=== PATIENT | female | born 1960 | race Asian ===

== ENCOUNTER 2016-07-06 09:18 | Inpatient (IN) | payer OTHER ==
--- NOTE | 2016-07-06 09:34 | EDPHY ---
H & P HPI/ROS: CHIEF COMPLAINT: Altered ental status, flu-like symptoms. HISTORY OF PRESENT ILLNESS: The patient is a 56-year-old female who presents via EMS. Wednesday night she developed flu-like symptoms including low-grade fever and cough and rested in bed all yesterday. Her noted that she went to bed around 3 o'clock yesterday afternoon. She seemed to be confused around 2100 and lethargic-appearing. These symptoms continued through this morning so EMS was notified. She is able to follow basic commands but is unable to answer basic questions. No chills, chest pain, palpitations, vomiting, diarrhea, urinary complaints, headache, lightheadedness. Her denies known head trauma but says she has not been drinking much water. Patient's daughter was diagnosed with influenza. Patient herself has not had significant fever. REVIEW OF SYSTEMS: Review of systems is unobtainable from this patient because of altered mentation. PAST MEDICAL HISTORY: UTI. SOCIAL HISTORY: Here with . VITAL SIGNS: Reviewed by me GENERAL: Well-developed, well-nourished, resting comfortably in no respiratory distress. HEENT: Atraumatic. Eyes: No icterus, no injection. Mouth: dry mucous membranes and dry lips. No erythema or lesions. Neck: supple with no adenopathy. JOE. Unable to test extraocular movements, patient unable to cooperate. Patient seems to have a slight leftward gaze preference. LUNGS: Minimal crackles at bases. Left greater than right. No wheezes, rhonchi or rales. CARDIAC: Regularly tachycardic. No rubs, murmurs or gallops. ABDOMEN: Soft, nontender, nondistended, bowel sounds normal. BACK: No CVA tenderness. EXTREMITIES: No trauma. No edema. Range of motion is normal throughout. NEURO: Alert and oriented x0, moving all extremities x4. Grossly nonfocal. Intermittent left gaze preference. SKIN: Warm and dry, no rash. PSYCHIATRIC: Slight agitation. Portions of this note were transcribed by a medical microbiologist. I personally performed a history, physical exam, medical decision making, and confirmed accuracy of information the transcribed note. Source: Family Exam Limitations: Clinical condition Constitutional: Initial Vital Signs Temperature (C) 36.9 C 07/06/16 09:27 Heart Rate 100 07/06/16 09:27 Respiratory Rate 16 07/06/16 09:27 Blood Pressure 109/92 H 07/06/16 09:27 O2 Sat (%) 94 07/06/16 09:27 O2 Delivery Mode Room Air Allergies/Adverse Reactions: No Known Allergies Allergy (Unverified 07/06/16 09:27) Home Medications: Medication Instructions Recorded NK [No Known Home Meds] 07/06/16 Medical Decision Making - Diagnostics Imaging: Study: CT of the head. Indication: AMS. Results: No acute process. The study was read by the radiologist, Dr. Alfaro. I viewed the images myself on the PACS system. X-ray chest was obtained. I viewed the images myself on the PACS system. The radiologist interpretation is: 1. Left lower lobe pneumonia. 2. Recommend follow-up until clear. I discussed the x-ray findings with the patient. Procedures: Procedure: Lumbar puncture. Indication: AMS, fever, influenza. After verbal informed consent from explaining the risks including infection, bleeding, and neurologic damage, a lumbar puncture was performed after the patient was prepped and draped in the usual fashion. The back was anesthetized with 1% lidocaine. Lumbar puncture was attempted 1st with the patient in the lying position. Patient had been medicated with Ativan prior to the procedure. Her altered mental status is making it difficult for her to follow directions and to hold still. Patient was then changed to a sitting position. Lumbar puncture was able to be successfully performed. Approximately 4 cc of slightly cloudy fluid was obtained. Opening pressure was not obtained. He just prior to end of the procedure, while collecting the fluid for tube 4, the patient abruptly sat upright. Lumbar puncture needle, 23 gauge , was removed. It is noted that the lumbar puncture needle was bent. The patient continues to move all extremities after the lumbar puncture. She was instructed to lay flat and a L of normal saline was begun. The procedure was performed by myself, Dr. Arias. ED Course/Re-evaluation: An IV was established and labs ordered. The patient was sent to CT for head imaging immediately after my exam. ISTAT obtained and is unremarkable. 1002: Head CT reported to me negative by Dr. Alfaro, radiology. I reassessed the patient at this time and discussed these results with her . After 200 CCs of fluid she is more alert and able to answer basic questions. Chest x- ray ordered. Blood work positive for influenza A. 1148: Consulted with Dr. Joseph, neurology. He will follow in the hospital. Lumbar puncture was performed. Patient received ceftriaxone 2 g as well as as acyclovir 800 mg IV following the LP. Severe Sepsis/Septic Shock Care Note The patient presents to the ED with influenza , pneumonia, altered mental status identified as an acute infection. The patient did have evidence of not have evidence of end-organ dysfunction and did not met criteria for severe sepsis. Patient was admitted to the hospitalist service. Dr. Frederick accepting. Dr. Frederick evaluated the patient in the emergency department. Differential Diagnosis: After the history was obtained and physical exam performed, the following differential for the patient's altered mental status was considered included but was not limited to hypoglycemia, electrolyte disturbances, intracranial hemorrhage, tumor, drug or alcohol intoxication, stroke, or TIA, encephalitis, meningitis, medication side effect. Consult/Admit Bed Type: Dr. Frederick, PCU Critical Care Time: I spent a total of 45 minutes of critical care time in obtaining history, performing a physical exam, bedside monitoring of interventions, collecting and interpreting tests and discussion with consultants but not including time spent performing procedures. - Data Points Laboratory Results: Laboratory Results 07/06/16 09:26 07/06/16 09:26 07/06/16 07/06/16 07/06/16 10:14 10:05 09:29 WBC RBC Hgb POC Hgb 15.6 gm/dL gm/dL (12.3-15.9) Hct POC Hct 46 % % (35.5-47.5) MCV MCH MCHC RDW Plt Count MPV Neut % (Auto) Lymph % (Auto) George % (Auto) Eos % (Auto) Baso % (Auto) Nucleat RBC Rel Count Absolute Neuts (auto) Absolute Lymphs (auto) Absolute Monos (auto) Absolute Eos (auto) Absolute Basos (auto) Absolute Nucleated RBC Immature Gran % Immature Gran # PT INR APTT VBG Lactic Acid 1.2 mmol/L mmol/L (0.7-2.1) POC Sodium 138 mEq/L mEq/L (134-144) Sodium POC Potassium 4.2 mEq/L mEq/L (3.3-5.0) Potassium POC Chloride 101 mEq/L mEq/L (96-108) Chloride Carbon Dioxide Anion Gap POC BUN 15 mg/dL mg/dL (7-23) BUN Creatinine POC Creatinine 0.8 mg/dL mg/dL (0.6-1.2) Estimated GFR Glucose POC Glucose 106 mg/dL H mg/dL (70-100) Calcium Total Bilirubin Troponin I Influenza A & B (PCR) POSITIVE FOR FLU A H (NEGATIVE) 07/06/16 07/06/16 07/06/16 09:26 09:26 09:26 WBC 4.09 10^3/uL 10^3/uL (3.80-9.50) RBC 4.99 10^6/uL 10^6/uL (4.18-5.33) Hgb 15.7 g/dL g/dL (12.6-16.3) POC Hgb Hct 46.3 % % (38.0-47.0) POC Hct MCV 92.8 fL fL (81.5-99.8) MCH 31.5 pg pg (27.9-34.1) MCHC 33.9 g/dL g/dL (32.4-36.7) RDW 12.0 % % (11.5-15.2) Plt Count 174 10^3/uL 10^3/uL (150-400) MPV 11.3 fL fL (8.7-11.7) Neut % (Auto) 61.1 % % (39.3-74.2) Lymph % (Auto) 24.4 % % (15.0-45.0) George % (Auto) 13.9 % H % (4.5-13.0) Eos % (Auto) 0.2 % L % (0.6-7.6) Baso % (Auto) 0.2 % L % (0.3-1.7) Nucleat RBC Rel Count 0.0 % % (0.0-0.2) Absolute Neuts (auto) 2.49 10^3/uL 10^3/uL (1.70-6.50) Absolute Lymphs (auto) 1.00 10^3/uL 10^3/uL (1.00-3.00) Absolute Monos (auto) 0.57 10^3/uL 10^3/uL (0.30-0.80) Absolute Eos (auto) 0.01 10^3/uL L 10^3/uL (0.03-0.40) Absolute Basos (auto) 0.01 10^3/uL L 10^3/uL (0.02-0.10) Absolute Nucleated RBC 0.00 10^3/uL 10^3/uL (0-0.01) Immature Gran % 0.2 % % (0.0-1.1) Immature Gran # 0.01 10^3/uL 10^3/uL (0.00-0.10) PT 12.5 SEC SEC (12.0-15.0) INR 0.94 (0.83-1.16) APTT 29.9 SEC SEC (23.0-38.0) VBG Lactic Acid POC Sodium Sodium 138 mEq/L mEq/L (134-144) POC Potassium Potassium 4.1 mEq/L mEq/L (3.5-5.2) POC Chloride Chloride 101 mEq/L mEq/L (97-110) Carbon Dioxide 24 mEq/l mEq/l (22-31) Anion Gap 13 mEq/L mEq/L (8-16) POC BUN BUN 13 mg/dL mg/dL (7-23) Creatinine 0.8 mg/dL mg/dL (0.6-1.0) POC Creatinine Estimated GFR > 60 Glucose 101 mg/dL H mg/dL (70-100) POC Glucose Calcium 9.7 mg/dL mg/dL (8.5-10.4) Total Bilirubin 0.6 mg/dL mg/dL (0.1-1.4) Troponin I < 0.012 ng/mL ng/mL (0-0.034) Influenza A & B (PCR) Medications Given: Discontinued Medications Fentanyl (Sublimaze) 50 mcg IVP EDNOW ONE Stop: 07/06/16 12:11 Last Admin: 07/06/16 12:30 Dose: 50 mcg Sodium Chloride (Ns) 1,000 mls @ 0 mls/hr IV ONCE ONE PRN Reason: Wide Open Stop: 07/06/16 09:36 Last Admin: 07/06/16 09:39 Dose: 1,000 mls Sodium Chloride (Ns) 1,000 mls @ 0 mls/hr IV ONCE ONE PRN Reason: Wide Open Stop: 07/06/16 12:46 Last Admin: 07/06/16 12:46 Dose: 1,000 mls Acyclovir 800 mg/ Dextrose 266 mls @ 250 mls/hr IV EDNOW ONE Stop: 07/06/16 13:50 Last Admin: 07/06/16 14:47 Dose: 266 mls Ceftriaxone Sodium 2 gm/ (Dextrose) 50 mls @ 100 mls/hr IV EDNOW ONE PRN Reason: Protocol Stop: 07/06/16 13:17 Last Admin: 07/06/16 13:36 Dose: 50 mls Lorazepam (Ativan Injection) 1 mg IVP EDNOW ONE Stop: 07/06/16 12:01 Last Admin: 07/06/16 12:10 Dose: 1 mg Lorazepam (Ativan Injection) 1 mg IVP ONCE ONE Stop: 07/06/16 14:14 Last Admin: 07/06/16 14:18 Dose: 1 mg Oseltamivir Phosphate (Tamiflu) 75 mg PO DAILY ADAMA Stop: 07/15/16 09:01 Last Admin: 07/06/16 17:00 Dose: Not Given Point of Care Test Results: 07/06/16 09:29 POC Sodium 138 POC Potassium 4.2 POC Chloride 101 POC BUN 15 POC Creatinine 0.8 POC Glucose 106 H Departure - Departure Disposition: [facility] Clinical Impression: Dehydration, Influenza Altered mental status Qualifiers: Altered mental status type: unspecified Qualified Code(s): R41.82 - Altered mental status, unspecified Pneumonia Qualifiers: Pneumonia type: due to unspecified organism Laterality: left Lung location: lower lobe of lung Qualified Code(s): J18.1 - Lobar pneumonia, unspecified organism Condition: Serious Report Scribed for: Carmen Arias Report Scribed by: Gee Camacho Date of Report: 07/06/16 Time of Report: 09:35
[2016-07-06] MEDS ORDERED: NS 1,000 ML IV ONE ×2 (09:35→12:45)
[2016-07-06 09:43] LABS: % IMMATURE GRANULYOCYTES 0.2 % (0.0-1.1); ABSOLUTE IMMATURE GRANULOCYTES 0.01 10^3/uL (0.00-0.10); ADD DIFF? NO; ADD MORPH? NO; ADD SCAN? NO; ATYPICAL LYMPHOCYTE FLAG 0 (0-99); FRAGMENT RBC FLAG 0 (0-99); HEMATOCRIT 46.3 % (38.0-47.0); HEMOGLOBIN 15.7 g/dL (12.6-16.3); LEFT SHIFT FLG 0 (0-99); LIPEMIA HEMOLYSIS FLAG 90 (0-99); MEAN CELL HEMOGLOBIN 31.5 pg (27.9-34.1); MEAN CELL HEMOGLOBIN CONCENTR. 33.9 g/dL (32.4-36.7); MEAN CELL VOLUME 92.8 fL (81.5-99.8); MEAN PLATELET VOLUME 11.3 fL (8.7-11.7); PLATELET CLUMPS FLAG 10 (0-99); PLATELET COUNT 174 10^3/uL (150-400); RED BLOOD CELL COUNT 4.99 10^6/uL (4.18-5.33)
[2016-07-06 09:51] LABS: ANION GAP 13 mEq/L (8-16); BILIRUBIN,TOTAL 0.6 mg/dL (0.1-1.4); CALCIUM 9.7 mg/dL (8.5-10.4); CARBON DIOXIDE 24 mEq/l (22-31); CHLORIDE 101 mEq/L (97-110); CREATININE 0.8 mg/dL (0.6-1.0); GLOMERULAR FILTRATION RATE > 60; GLUCOSE 101 mg/dL (70-100); POTASSIUM 4.1 mEq/L (3.5-5.2); SODIUM 138 mEq/L (134-144)
[2016-07-06 09:57] LABS: INR 0.94 (0.83-1.16); PROTIME(PATIENT) 12.5 SEC (12.0-15.0)
[2016-07-06 09:58] LABS: APTT 29.9 SEC (23.0-38.0)
[2016-07-06 10:02] LABS: TROPONIN I < 0.012 ng/mL (0-0.034)
--- NOTE | 2016-07-06 10:15 | CPEKG ---
Heart Rate: 97 RR Interval: 619 P-R Interval: 120 QRSD Interval: 84 QT Interval: 352 QTC Interval: 447 P [place]: 73 QRS [place]: 99 T Wave [place]: 40 EKG Severity - ABNORMAL ECG - EKG Impression: SINUS RHYTHM EKG Impression: RIGHT ATRIAL ABNORMALITY EKG Impression: RIGHT VENTRICULAR HYPERTROPHY Electronically Signed By: Carmen Arias 06-Jul-2016 17:53:16
[2016-07-06] MEDS ORDERED: LORazepam 2 MG/ML INJ IVP ONE ×2 (12:00→14:13)
[2016-07-06] MEDS ORDERED: fentaNYL 100 MCG/2 ML INJ IVP ONE (12:10)
[2016-07-06] MEDS ORDERED: ONDANSETRON DISINTEGRATING 4 MG TAB PO PRN (12:22)
[2016-07-06] MEDS ORDERED: ONDANSETRON 4 MG/2 ML VIAL IVP PRN (12:22)
[2016-07-06] MEDS ORDERED: ACYCLOVIR 800 MG in D5W 250 ML IV ONE (12:47)
[2016-07-06] MEDS ORDERED: cefTRIAXone 2 GM in D5W 50 ML IV ONE (12:48)
[2016-07-06 12:53] LABS: ALANINE AMINOTRANSFERASE 55 IU/L (9-52); ALBUMIN 4.8 g/dL (3.5-5.0); ALKALINE PHOSPHATASE 88 IU/L (38-126); ANION GAP 13 mEq/L (8-16); ASPARTATE AMINOTRANSFERASE 40 IU/L (14-46); BILIRUBIN,TOTAL 0.6 mg/dL (0.1-1.4); BILIRUBIN-CONJUGATED 0.5 mg/dL (0.0-0.5); BILIRUBIN-UNCONJUGATED 0.1 mg/dL (0.0-1.1); CALCIUM 9.7 mg/dL (8.5-10.4); CARBON DIOXIDE 23 mEq/l (22-31); CHLORIDE 101 mEq/L (97-110); CREATININE 0.8 mg/dL (0.6-1.0); GLOMERULAR FILTRATION RATE > 60; GLUCOSE 102 mg/dL (70-100); MAGNESIUM 2.1 mg/dL (1.6-2.3); POTASSIUM 4.1 mEq/L (3.5-5.2); SODIUM 137 mEq/L (134-144); TOTAL PROTEIN 8.5 g/dL (6.3-8.2)
[2016-07-06] MEDS ORDERED: OSELTAMIVIR PHOSPHATE 75 MG CAP PO SCH (13:00)
[2016-07-06 13:23] LABS: PROTEIN, CSF 87 mg/dL (12-60)
[2016-07-06 13:29] LABS: CSF APPEARANCE CLEAR (CLEAR); CSF COLOR COLORLESS (COLORLESS); CSF SUPERNATANT COLORLESS (COLORLESS); WBC, CSF 0 /mm3 (0-5)
[2016-07-06 13:39] LABS: CSF APPEARANCE CLEAR (CLEAR); CSF COLOR COLORLESS (COLORLESS); CSF SUPERNATANT COLORLESS (COLORLESS)
[2016-07-06] MEDS ORDERED: IOPAMIDOL (ISOVUE 370) 100 ML BTL IV ONE (13:57)
[2016-07-06 14:37] LABS: WBC, CSF 0 /mm3 (0-5)
--- NOTE | 2016-07-06 14:40 | GHP ---
[f rep st] HISTORY AND PHYSICAL DATE OF ADMISSION: 07/06/2016 CHIEF COMPLAINT: Confused. HISTORY OF PRESENT ILLNESS: This is a 56-year-old female, accompanied by her , who presents with significant confusion. All history is provided through her as this patient is not able to answer any questions at this point. Apparently, she felt as though she was coming down with inf luenza yesterday afternoon. Her daughter also has influenza. She was not vaccinated. Because of t his, she spent all afternoon in bed. Her saw her around 4 p.m. and she had a conversation. Before she went to bed, she did not speak to him, although he assumed at that point she was just fe eling poorly and did not feel like talking. She then went to bed and had an uneventful night. She did not take any medications yesterday or any other illegal drugs. She woke up today unable to spea k. She was very confused, not really following commands. Thus, her brought her into the spital. He notes that yesterday she had myalgias, possibly subjective fevers. She has somewhat of a chronic cough and has not really been coughing more than recent. She does not have any history of stroke or seizures. PAST MEDICAL/SURGICAL HISTORY: None. MEDICATIONS: None. ALLERGIES: None. FAMILY HISTORY: Her mother had a stroke. SOCIAL HISTORY: Her daughter had influenza. She is . She does not drink or smoke. REVIEW OF SYSTEMS: Ten-point review of systems is conducted and is negative, except per HPI. PHYSICAL EXAM: VITAL SIGNS: Blood pressure is 111/75, heart rate is 86, respiration rate 16, satur ating 90% on room air, T-max has been 37.1. GENERAL: The patient is a female, who is lying in bed, appears quite confused, following commands. HEENT: She is atraumatic, normocephalic. CARDIOVASCU LAR: Regular rate and rhythm. No murmurs, rubs, or gallops. PULMONARY: Lungs clear to auscultati on bilaterally. ABDOMEN: Soft, nontender, nondistended. SKIN: No rash. : No Johns. NEUROLOG IC: She is A and O x0. She is not speaking. She will follow basic commands. She has motor intact in her upper and lower extremities. Reflexes are symmetric in both her upper and lower extremities . Cranial nerves are difficult to examine as she does not really follow commands. She does not hav e a tremor. PSYCHIATRIC: Unobtainable. LABS: CBC is normal. INR 0.94. Lactate is 1.2. Basic metabolic panel is normal. ALT is 55. TSH is 0.224. CSF: Total protein is 87, glucose is 51. She is positive for influenza A. DATA: 1. I discussed this with Dr. Arias. Will admit to med/surg. 2. CT head is read as normal. 3. ECG, which I personally viewed and interpreted, shows sinus rhythm, no acute ischemic changes. 4. Chest x-ray, which I personally viewed and interpreted, shows possible left lower lobe pneumonia . IMPRESSION AND PLAN: This is a 56-year-old female, with no medical history, who presents with signi ficant encephalopathy and influenza A. 1. Influenza A: Will treat with Tamiflu twice daily. She had questionable left lower lobe pneumon ia, I think it is reasonable to treat her for community-acquired pneumonia at this point. She has a lready received 2 g of Rocephin. Will add azithromycin. 2. Encephalopathy: This is quite pronounced in an otherwise healthy, high functioning lady. Dr. Andres fuentes with Neurology has been consulted. Full LP results are pending, though initial protein is elevat ed with a normal glucose. Agree at this point with empiric treatment for meningitis/encephalitis. Other considerations include acute CVA, will check CT angio of head and neck if LP results somewhat under-whelming. Consider seizures, though no focus seen on CT scan. Consider that this may be due to influenza A, though her encephalopathy is quite marked. Her TSH is low, I will check free T3 and T4. I have checked a cortisol. Will follow her on telemetry, though I do not have any indication at this point that this is acute coronary syndrome. I will check another troponin tomorrow morning. /[id number]/MODL
[2016-07-06] MEDS: NS 1,000 ML IV SCH (15:32)
[2016-07-06] MEDS: AZITHROMYCIN IV 500 MG in D5W 250 ML IV SCH (15:50)
[2016-07-06 18:08] LABS: INR 1.04 (0.83-1.16); PROTIME(PATIENT) 13.5 SEC (12.0-15.0)
[2016-07-06] MEDS: OSELTAMIVIR PHOSPHATE 75 MG CAP PO SCH (19:02)
--- NOTE | 2016-07-06 20:41 | GCON ---
[f rep st] CONSULTATION INFECTIOUS DISEASE CONSULTATION REFERRING PHYSICIAN: Bob Frederick MD REASON FOR CONSULTATION: Influenza with encephalopathy. HISTORY OF PRESENT ILLNESS: Patient is a 56-year-old female who was admitted to [facility] on 07/06/2016, through the emergency room. The patient presented with significant confusion. The patient's noted in the emergency room that their daughter, who lives at home, has influenza A. The patient began to feel ill over the last couple of days. The patient went to bed last night, and had a conversation with her around 4 p.m., but later in the evening there was no conversation prior to bedtime, but the presumed that she was feeling poorly and did not feel like talking. The night was uneventful, but when she woke up this morning she was unable to speak, was quite confused and not following commands. In emergency room, she was positive by nasal swab for influenza A. She was afebrile. The patient was started on Tamiflu. She underwent a noncontrasted head CT which was normal. She underwent a neck and head CT angiogram, both of which were normal. Currently, she is resting in her hospital bed. The patient is alert. She is somnolent most of the time, but with stimulation she opens her eyes and attends. She was able to utter no and nod and shake her head to a couple of questions, but with more than quite simple questions she was unable to give a response. She attempted to verbalize when I asked her to state her full name, but she was unable to do so. She was able to squeeze my hand, but unable to move her feet with commands. However, she was noted to have spontaneous movement of her lower extremities at different points in the exam. PAST MEDICAL HISTORY: Negative. PAST SURGICAL HISTORY: Negative. ANTIBIOTICS: Oseltamivir. ALLERGIES: No known medical allergies. 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 No tobacco or alcohol use. FAMILY HISTORY: Reviewed, but noncontributory. REVIEW OF SYSTEMS: Other than that detailed above in History of Present Illness , a comprehensive 10-system review is negative by chart and interview. PHYSICAL EXAMINATION: VITAL SIGNS: Temperature maximum is 37.1, temperature current is 37.1. Heart rate is 83, respiratory rate is 14, blood pressure is 101/58. GENERAL: The patient is a well-formed, well-nourished middle-aged female, in no acute distress. She is not toxic in appearance. She is alert, but somewhat somnolent. Unable to ascertain orientation. HEENT: Normocephalic for age. Atraumatic. No scleral icterus. No oral lesion or drainage from the nares. Eyes, lids and conjunctivae within normal limits. Pupils are equal and round bilaterally. NECK: Supple. No meningismus. LUNGS: Clear to auscultation bilaterally with good effort. HEART: Regular rate and rhythm. No murmur, rub , or gallop noted. SKIN: Warm and dry to the touch. No rash or lesion. MUSCULOSKELETAL: No muscle belly tenderness is noted. No joint enlargement, effusion or arthritis is seen. ABDOMEN: Soft, nontender. No masses. NEURO: Cranial nerves 2-12 seem to be intact. Peripheral sensation seems intact in all extremities. The patient's upper cognitive abilities appear to be markedly impaired. Speech is impaired. LABORATORY DATA: Patient has a CBC dated 07/06/2016, shows a white blood cell count of 4.1, hemoglobin 15.7, hematocrit of 46.3, platelet count of 174. Differential shows mildly increased monocyte percentage, otherwise normal. Serum chemistries on 07/06/2016, shows sodium 138, potassium of 4.1, chloride of 101, bicarbonate of 24, BUN of 13, creatinine is 0.8. Thyroid stimulating hormone is low at 0.224. CSF values: Patient has cerebral spinal fluid drawn during the ER presentation. No white blood cells in either tube. Spinal fluid protein is elevated at 87. Influenza PCR positive for flu A. Herpes simplex virus type 1 and type 2 DNA are pending. MICROBIOLOGIC DATA: The patient has spinal fluid Gram stain negative for organisms. Blood cultures dated 07/06/2016 are pending. ASSESSMENT: Acute influenza A with encephalopathy. This is a rare, but known, manifestation of influenza. I am concerned about significant viral encephalitis. We will continue her on oseltamivir. We will await the results of the MRI scan with gadolinium. We will continue supportive care. PLAN: 1. Continue oseltamivir. 2. Continue supportive care. 3. Follow up MRI results. /[id number]/MODL MTDD
--- NOTE | 2016-07-06 21:50 | GCON ---
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 She may have had some very minor memory lapses in the last year according to her where she misremembers or forgets scheduling events with her daughter. However, her would not have considered this significant if the history of present illness had not been occurring. The history of present illness is such that their daughter, who is a teenager, developed flu I believe that was positive with testing and was influenza A. The patient herself began developing low- grade fever, cough, myalgias, and went to bed early last night. Her noticed that she went to bed early and had become less talkative, and he thought that was because she was not feeling well. He is confident that at 4 p.m. yesterday she was completely herself in terms of her mental status, in terms of being talkative and coherent, fluent, etc. He then felt around 9 p.m. , she seemed confused when he came to bed without any focal weakness, numbness, or other symptoms. There were no seizures witnessed. They went to bed and when he woke up this morning, she seemed even more confused and had decreased verbal output. Therefore, EMS was activated. Again, this morning, there were no focal sensory or motor symptoms. No visual loss that he could detect. No seizure activity. She was able to follow commands apparently with EMS and in the ER, but was unable to answer basic questions. Her tells me that she did start getting back some verbal function and was able to say his name, but then got Ativan for CT angiography which then made her nonverbal again. REVIEW OF SYSTEMS: Ten-point review of system was done and positive for the constitutional symptoms related to her flu in the last 2-3 days. The pertinent negatives are negative for any focal, sensory, or motor symptoms as noted above. She may have had some minor memory lapses in the last year. Otherwise, 10-point review is negative. PAST MEDICAL HISTORY: She has had UTIs. 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 She is fluent in [place]. FAMILY HISTORY: Negative for heritable neurologic diseases. PHYSICAL EXAM: VITAL SIGNS: Temperature upon arrival is 36.9 here on the floor , blood pressure 120/79, respirations 16, heart rate 86. GENERAL: The patient had her eyes open, did not appear in acute distress, nor does she seem relaxed. She seems somewhat agitated at times when interacting with her. HIGHER MENTAL FUNCTION: She was moderately to severe encephalopathic, able to follow minimal motor commands when trying to test her, but no coherent or clear spontaneous or evoked verbal output. I was able to get conjugate tracking in terms of her extraocular movements. There was no dysconjugate gaze. Pupils were reactive bilaterally. There was no gross facial asymmetry. On motor exam , she had good tone in all 4 extremities without any flaccid weakness noted. Deep tendon reflexes were normal throughout. There was spontaneous movement throughout. There was no myoclonus or subtle convulsive activity noted. No focal findings. LABS: She had positive for flu A. White blood cell count was 4 with an elevated mono percentage at 13.9. electrolytes are normal. She had a lumbar puncture in the emergency department with 0 white cells and a protein of 87. PCRs for HSV-1 and HSV-2 are pending. IMPRESSION AND PLAN: 1. Influenza A. 2. Encephalopathy. The patient has fairly dramatic cognitive changes associated with clinical and serological influenza A suggesting [employer] involvement (flu encephalitis). There are no white blood cells in her CSF. Case was discussed with my colleagues in Infectious Disease. She had CTAs of her head and neck which were unremarkable in terms of any acute neurovascular abnormality. We will obtain an MRI brain with and without contrast to see if there are any changes of encephalitis or unexpected findings, such as stroke, masses, etc. We will continue to provide maximal supportive care and antimicrobial therapy per Infectious Disease. She is on Tamiflu now. We will also corroborate in terms of further infectious disease testing for this very nice patient. Will follow up on above. Thank you for this consultation. /[id number]/MODL MTDD
[2016-07-06] MEDS: ACYCLOVIR 800 MG in D5W 250 ML IV SCH (22:00)
[2016-07-07 05:32] LABS: ADD DIFF? NO; ADD MORPH? NO; ADD SCAN? NO; ATYPICAL LYMPHOCYTE FLAG 0 (0-99); FRAGMENT RBC FLAG 0 (0-99); HEMATOCRIT 36.2 % (38.0-47.0); HEMOGLOBIN 12.4 g/dL (12.6-16.3); LEFT SHIFT FLG 0 (0-99); LIPEMIA HEMOLYSIS FLAG 90 (0-99); MEAN CELL HEMOGLOBIN 30.8 pg (27.9-34.1); MEAN CELL HEMOGLOBIN CONCENTR. 34.3 g/dL (32.4-36.7); PLATELET CLUMPS FLAG 0 (0-99); PLATELET COUNT 147 10^3/uL (150-400); RED BLOOD CELL COUNT 4.02 10^6/uL (4.18-5.33); RED CELL DISTRIBUTION WIDTH 11.8 % (11.5-15.2)
[2016-07-07] MEDS: ACYCLOVIR 800 MG in D5W 250 ML IV SCH (05:36)
[2016-07-07] MEDS: NS 1,000 ML IV SCH ×2 (05:36→18:19)
[2016-07-07 07:26] LABS: COLOR YELLOW; LEUKOCYTE ESTERASE,URINE NEGATIVE (NEGATIVE); NITRITE,URINE NEGATIVE (NEGATIVE)
[2016-07-07 07:29] LABS: MUCUS TRACE /lpf (NONE-1+)
[2016-07-07] MEDS ORDERED: VANCOMYCIN 750 MG in D5W 150 ML IV SCH (09:00)
[2016-07-07] MEDS ORDERED: cefTRIAXone 2 GM in D5W 50 ML IV SCH (09:00)
[2016-07-07] MEDS ORDERED: cefTRIAXone 1 GM in D5W 50 ML IV SCH (09:00)
[2016-07-07] MEDS: OSELTAMIVIR PHOSPHATE 75 MG CAP PO SCH ×2 (09:25→18:20)
--- NOTE | 2016-07-07 09:50 | PCMIDPN ---
Assessment/Plan: Assessment/Plan: 1. Influenza A with encephalopathy: -On droplet precautions - Currently on Tamiflu and Ceftriaxone/Azithro for possible secondary bacterial pneumonia -CXR images reviewed: small LLL pneumonia noted -dc acyclovir as I don't think her CSF or clinical presentation is consistent with HSV encephalitis. -WBc down today. Repeat in AM. -care coordinated with RN, and hospitalist team. 2. Coag Neg staph bacteremia: -likely skin contaminant, as only in one set of each bottle, and no underlying HW/FB devices etc. -hold off on vanco for now. Meds tamiflu azithro 500mg daily ceftraixone 1g daily Subjective: intermittent low grade temps. More alert and oriented today. confirmed by friend at bedside and RN. DEnies abd pain or diarrhea. Able to tell me her , where she is at etc. Denies sob. coughing up some phlegm,mostly clear. trying to take deep breaths but weak. no history of hardware or foreign body devices. Objective: Vital Signs Temp Pulse Resp BP Pulse Ox 37.7 C 92 20 103/59 L 91 L 07/07/16 08:54 07/07/16 07:14 07/07/16 07:14 07/07/16 07:14 07/07/16 07:14 Laboratory Results 07/07/16 04:47 07/06/16 Unknown 07/06/16 07/07/16 07/08/16 05:59 05:59 05:59 Intake Total 1190 Output Total 0 900 Balance 1190 -900 - Physical Exam General Appearance: alert, no apparent distress Respiratory: coarse breath sounds (alex on left side. not able to take deep breaths. ) Cardiac/Chest: regular rate, rhythm, No systolic murmur Extremities: No swelling Abdomen: normal bowel sounds, non-tender, soft, No distended Skin: No erythema ICD10 Worksheet Patient Problems: Problems Problem Status Onset Altered mental status Acute Dehydration Acute Influenza Acute Pneumonia Acute
[2016-07-07] MEDS: AZITHROMYCIN IV 500 MG in D5W 250 ML IV SCH (10:20)
--- NOTE | 2016-07-07 14:42 | HOSPPROG ---
Hospitalist Progress Note Assessment/Plan: Assessment: 56-year-old female presents with influenza A and acute encephalopathy Plan: 1. Influenza A. Acute, new problem this provider, further workup indicated. positive PCR, clinical presentation consistent with viral encephalitis, CSF with high protein level, low glucose level, no significant pleocytosis - discussed with Dr. Joseph, will continue the patient on Tamiflu and discontinue acyclovir - continue to engage the patient in physical and occupational therapy as she is expected urine significant weakness - use as needed Tylenol and ibuprofen, avoid sedating medications she is very sensitive to these - get chest CT to rule out concomitant left lower lobe bacterial pneumonia ( Personally interpreted chest x-ray) and if negative for lobar infiltrate, will discontinue ceftriaxone and azithromycin - continue to monitor CBC, patient developing evidence of leukopenia on today's draw - recommended standard screening for HIV and hepatitis C virus given age cohort , leukopenia, transaminitis, patient is deferring testing at this time until she has not pertain to talk with her 2. Acute encephalopathy. Evidenced by global brain dysfunction characterized as disorientation plus confusion plus somnolence and lethargy, all of which are an acute change from the patient's baseline, most likely secondary to the toxic effects of infection notably influenza a - engage the patient in physical and occupational therapy as she is a high risk of deconditioning in the setting of infection - cognitive abilities are improving today with treatment for infection continue to monitor 3. Coag-negative staph. Likely contaminant, hold on any antimicrobial treatment Diet. Regular Prophylaxis. High risk patient, Lovenox 40 Code. Full Disposition. Anticipated discharge is 07/08, pending clinical improvement of conditions outlined above. Subjective: Patient reports that she still feels considerably fatigue and does not feel like she can't get out of bed Objective: Vital Signs Temp Pulse Resp BP Pulse Ox 37.0 C 83 16 95/72 L 93 07/07/16 11:54 07/07/16 11:54 07/07/16 11:54 07/07/16 11:54 07/07/16 11:54 Laboratory Results 07/07/16 04:47 07/06/16 Unknown 07/06/16 07/07/16 07/08/16 05:59 05:59 05:59 Intake Total 1190 Output Total 0 1500 Balance 1190 -1500 PT 13.5 SEC (12.0-15.0) 07/06/16 17:25 INR 1.04 (0.83-1.16) 07/06/16 17:25 - Physical Exam Constitutional: not in pain, uncomfortable, No no apparent distress ( mild distress), No chronically ill appearing Eyes: PERRL, anicteric sclera, EOMI Ears, Nose, Mouth, Throat: moist mucous membranes, hearing normal, ears appear normal, no oral mucosal ulcers Cardiovascular: regular rate and rhythym, no murmur, rub, or gallop, No edema Respiratory: no respiratory distress, no rales or rhonchi, clear to auscultation Gastrointestinal: normoactive bowel sounds, soft, non-tender abdomen, no palpable masses Neurologic: sensation intact bilaterally, other ( alert awake oriented x2 to person and place not to date, negative for meningismus), No weakness ( motor strength is 5/5 bilateral upper and lower extremity), No facial droop Psychiatric: interacting appropriately, anxious, flat affect, poor memory, other ( somnolent but arousable), No agitated ICD10 Worksheet Patient Problems: Problems Problem Status Onset Dehydration Acute Influenza Acute Altered mental status Acute Pneumonia Acute
[2016-07-07 14:58] LABS: PHENCYCLIDINE URINE BCH < 6 ng/ml (NEGATIVE); PHENCYCLIDINE URINE BCH NEGATIVE (NEGATIVE); TETRAHYDROCANNABINOL URINE < 5 ng/mL (NEGATIVE); TETRAHYDROCANNABINOL URINE NEGATIVE (NEGATIVE)
[2016-07-07] MEDS: ENOXAPARIN 40 MG/0.4 ML SYR SC SCH (16:30)
--- NOTE | 2016-07-07 18:31 | NEUROPROG ---
Assessment: 1. Influenza Type A 2. Encephalopathy, resolving Patient's mental status markedly improved today - verbal, responsive, oriented 3 /3 MRI - could not be done due to agitation Assessment/ RECCs: Likely improving flu encephalitis - 1. supportive care, antimicrobial's per ID (appreciate their input) 2. OT, PT 3. Can hold off on MRI brain for now, as AMS resolving and no focal findings 4. Will continue to follow as needed. Please contact neurology if change in neurologic status Subjective: Improved overnight Objective: Vital Signs Temp Pulse Resp BP Pulse Ox 36.7 C 81 16 113/75 92 07/07/16 15:50 07/07/16 15:50 07/07/16 15:50 07/07/16 15:50 07/07/16 15:50 Laboratory Results 07/07/16 04:47 07/06/16 Unknown 07/06/16 07/07/16 07/08/16 05:59 05:59 05:59 Intake Total 1190 1342 Output Total 0 1500 Balance 1190 -158 PT 13.5 SEC (12.0-15.0) 07/06/16 17:25 INR 1.04 (0.83-1.16) 07/06/16 17:25 a/a oriented 3/3 no aphasia, dysarthria some psychomotor slowing no drift no focal weakness no ataxia no convulsive activity Allergies/Adverse Reactions: No Known Allergies Allergy (Unverified 07/06/16 09:27)
[2016-07-08] MEDS: NS 1,000 ML IV SCH (04:06)
[2016-07-08 05:32] LABS: ADD DIFF? NO; ADD MORPH? NO; ADD SCAN? NO; ATYPICAL LYMPHOCYTE FLAG 80 (0-99); FRAGMENT RBC FLAG 0 (0-99); HEMATOCRIT 36.8 % (38.0-47.0); HEMOGLOBIN 12.6 g/dL (12.6-16.3); LEFT SHIFT FLG 0 (0-99); LIPEMIA HEMOLYSIS FLAG 90 (0-99); MEAN CELL HEMOGLOBIN 31.5 pg (27.9-34.1); MEAN CELL HEMOGLOBIN CONCENTR. 34.2 g/dL (32.4-36.7); PLATELET CLUMPS FLAG 0 (0-99); PLATELET COUNT 154 10^3/uL (150-400); RED CELL DISTRIBUTION WIDTH 11.6 % (11.5-15.2)
[2016-07-08 05:40] LABS: ALANINE AMINOTRANSFERASE 44 IU/L (9-52); ALBUMIN 3.2 g/dL (3.5-5.0); ALKALINE PHOSPHATASE 54 IU/L (38-126); ANION GAP 8 mEq/L (8-16); ASPARTATE AMINOTRANSFERASE 29 IU/L (14-46); BILIRUBIN,TOTAL 0.4 mg/dL (0.1-1.4); CALCIUM 8.6 mg/dL (8.5-10.4); CARBON DIOXIDE 23 mEq/l (22-31); CHLORIDE 107 mEq/L (97-110); CREATININE 0.6 mg/dL (0.6-1.0); GLOMERULAR FILTRATION RATE > 60; GLUCOSE 75 mg/dL (70-100); POTASSIUM 3.6 mEq/L (3.5-5.2); SODIUM 138 mEq/L (134-144)
[2016-07-08] MEDS: ENOXAPARIN 40 MG/0.4 ML SYR SC SCH (08:03)
[2016-07-08] MEDS: OSELTAMIVIR PHOSPHATE 75 MG CAP PO SCH ×2 (08:04→17:59)
[2016-07-08 08:41] VITALS: RESP 16
--- NOTE | 2016-07-08 13:59 | PCMIDPN ---
Assessment/Plan: # Influenza with encephalopathy, much improved. LP performed and no CSF WBC, very slightly elevated protein, acyclovir dc'd yesterday. CT yesterday of chest showed no focal infiltrate and antibiotics discontinued --Tamiflu #2/ --if remains stable in AM okay to dc prior to ID rounding to complete 5 total days Tamiflu # Leukopenia may be due to influenza or acyclovir/cephalosporin toxicity --recheck CBC in AM # Positive blood cx with CoNS likely contaminant, no treatment Subjective: feels weak denies BOOTH no diarrhea no rash Objective: Vital Signs Temp Pulse Resp BP Pulse Ox 36.9 C 70 16 113/76 94 07/08/16 12:00 07/08/16 12:00 07/08/16 12:00 07/08/16 12:00 07/08/16 12:00 Laboratory Results 07/08/16 04:35 07/08/16 04:35 07/07/16 07/08/16 07/09/16 05:59 05:59 05:59 Intake Total 1190 1342 950 Output Total 0 1500 Balance 1190 -158 950 - Physical Exam General Appearance: alert Respiratory: lungs clear Cardiac/Chest: regular rate, rhythm Extremities: No pedal edema Skin: No rash Neuro/Psych: oriented x 3, No motor weakness, No sensory deficit, No cognition abnormalities ICD10 Worksheet Patient Problems: Problems Problem Status Onset Altered mental status Acute Dehydration Acute Influenza Acute Pneumonia Acute
--- NOTE | 2016-07-08 14:19 | HOSPPROG ---
Hospitalist Progress Note Assessment/Plan: 56-year-old female presents with influenza A and acute encephalopathy #Influenza A -positive PCR -Tamiflu day 2 -Initially treated with Acyclovir and IV abx. Stopped as infectious w/u is negative including negative Chest CT #Leukopenia, slightly worsening overnight -recheck in a.m. #Acute Encephalopathy secondary to viral encephalitis. -CSF with high protein level, low glucose level, no significant pleocytosis -Cognition with some improvement, although still with impairment -Was not able to get an MRI brain due to anxiety. Per Neuro, OK to not order as cognition is improving #Coag-negative staph. Likely contaminant, hold on any antimicrobial treatment #Generalized Weakness: doing better. PT/OT Diet. Regular Prophylaxis. High risk patient, Lovenox 40 Code. Full Disposition. Anticipated discharge soon. Stop IVF's S: Feels better. Cognition is improving O: VSS NAD AAOX3 MMM RRR CTAB S/NT/ND NO EDEMA Objective: Vital Signs Temp Pulse Resp BP Pulse Ox 36.9 C 70 16 113/76 94 07/08/16 12:00 07/08/16 12:00 07/08/16 12:00 07/08/16 12:00 07/08/16 12:00 Laboratory Results 07/08/16 04:35 07/08/16 04:35 07/07/16 07/08/16 07/09/16 05:59 05:59 05:59 Intake Total 1190 1342 950 Output Total 0 1500 Balance 1190 -158 950 PT 13.5 SEC (12.0-15.0) 07/06/16 17:25 INR 1.04 (0.83-1.16) 07/06/16 17:25 - Time Spent With Patient Time Spent with Patient: greater than 35 minutes Time Spent with Patient: Greater than 35 minutes spent on this patients care, greater than 50% of time spent counseling, educating, and coordinating care regarding the above mentioned plan. ICD10 Worksheet Patient Problems: Problems Problem Status Onset Altered mental status Acute Dehydration Acute Influenza Acute Pneumonia Acute
[2016-07-08] MEDS: IBUPROFEN 200 MG TAB PO PRN (16:39)
[2016-07-08] MEDS: ACETAMINOPHEN 325 MG TAB PO PRN (18:40)
[2016-07-09 06:16] LABS: ADD DIFF? NO; ADD MORPH? NO; ADD SCAN? YES; FRAGMENT RBC FLAG 0 (0-99); HEMATOCRIT 40.5 % (38.0-47.0); LEFT SHIFT FLG 0 (0-99); LIPEMIA HEMOLYSIS FLAG 90 (0-99); MEAN CELL HEMOGLOBIN 30.8 pg (27.9-34.1); MEAN CELL HEMOGLOBIN CONCENTR. 34.6 g/dL (32.4-36.7); MEAN CELL VOLUME 89.2 fL (81.5-99.8); MEAN PLATELET VOLUME 10.8 fL (8.7-11.7); PLATELET CLUMPS FLAG 10 (0-99); PLATELET COUNT 160 10^3/uL (150-400); RED BLOOD CELL COUNT 4.54 10^6/uL (4.18-5.33); RED CELL DISTRIBUTION WIDTH 11.5 % (11.5-15.2)
[2016-07-09 06:17] LABS: ATYPICAL LYMPHOCYTE FLAG 150 (0-99)
[2016-07-09 06:28] LABS: ANION GAP 11 mEq/L (8-16); CALCIUM 9.3 mg/dL (8.5-10.4); CARBON DIOXIDE 25 mEq/l (22-31); CHLORIDE 105 mEq/L (97-110); CREATININE 0.6 mg/dL (0.6-1.0); GLOMERULAR FILTRATION RATE > 60; GLUCOSE 83 mg/dL (70-100); POTASSIUM 3.8 mEq/L (3.5-5.2); SODIUM 141 mEq/L (134-144)
[2016-07-09 06:55] LABS: SCAN NEGATIVE
[2016-07-09 07:32] VITALS: BP 98/60; PULSE 62; TEMP 97.5; O2SAT 93
[2016-07-09] MEDS: ACETAMINOPHEN 325 MG TAB PO PRN (09:31)
[2016-07-09] MEDS: OSELTAMIVIR PHOSPHATE 75 MG CAP PO SCH (09:32)
[2016-07-09] MEDS: ENOXAPARIN 40 MG/0.4 ML SYR SC SCH (09:33)
[2016-07-09] MEDS: IBUPROFEN 200 MG TAB PO PRN (11:19)
--- NOTE | 2016-07-09 11:28 | PDDCSUM ---
Discharge Summary Discharge Summary: HPI/Hospital Course: 56-year-old female presents with influenza A and acute encephalopathy. Please see below for details per problem list. Her Encephalopathy has now resolved and she is at baseline. She was evaluated by ID and Neurology and has been cleared for discharge. She will continue Tamiflu for complete treatment regimen. She will be discharging to home with her . She is still somewhat weak, but is improving. She does have an intermittent BOOTH, no neurological deficits, and she prefers to treat with tylenol and ibuprofen alternating doses. She does not want narcotics or other treatments. #Influenza A -positive PCR -Tamiflu day 2/5 -Initially treated with Acyclovir and IV abx. Stopped as infectious w/u is negative including negative Chest CT #Leukopenia, stable, likely due to viral etiology -WBC today: 1.99, improved from 1.79 yesterday. -Likely not caused by Tamiflu as this is not a common reaction -Afebrile, feels better #BOOTH: Etiology unclear. [employer] was 3 days ago. BOOTH is intermittent. She prefers to mgm with tylenol and ibuprofen per above. #Acute Encephalopathy secondary to viral encephalitis. -CSF with high protein level, low glucose level, no significant pleocytosis -[facility] -Was not able to get an MRI brain due to anxiety. Per Neuro, OK to not order as cognition is improving. There was some discussion about getting it, but at this time, she refused. #Coag-negative staph. Likely contaminant, hold on any antimicrobial treatment per ID #Generalized Weakness: doing better. PT/OT Diet. Regular Code. Full Meds: see med rec O: VSS NAD AAOX3 MMM RRR CTAB S/NT/ND NO EDEMA Follow Up: She will f/u with her PCP next week. Return to ED if she develops fever. PT and the pt's understand. Total care time spent on discharge is 40 minutes
== END 2016-07-09 12:28 | disposition home or self-care (01) | DRG 866 ==
LOC: EDUNIT# → F3E 14:46 → OBSVTOIN 16:30
PROVIDERS: ADMIT Student in an Organized Health Care Education/Training Program; ATTEND Student in an Organized Health Care Education/Training Program
PROC: 009U3ZX Drainage of Spinal Canal, Percutaneous Approach, Diagnostic (ICD-10-PCS; principal; 2016-07-06)
DX: J10.81 Influenza due to other identified influenza virus with encephalopathy (principal); Z87.440 Personal history of urinary (tract) infections
CPT/HCPCS: 80307; 82947-QW; 84481-90; 96374; 97165-GO; G0480; J0133; J0456; J0696; J1650; J3010; J3370; Q9967